=== PATIENT | female | born 1960 | race Caucasian/White ===

== ENCOUNTER 2017-08-19 08:08 | Day surgery (SDC) | payer SELFPAY ==
[2017-08-13 13:38] VITALS: BMI 29.2
[2017-08-19] MEDS: CYCLOPENTOLATE 2% OPHTH SOLN 2 ML BOTTLE ONE ×6 (08:45→09:10)
[2017-08-19] MEDS: TROPICAMIDE 1% OPHTH SOLN 15 ML BOTTLE ONE ×6 (08:45→09:10)
[2017-08-19] MEDS: PHENYLEPHRINE 2.5% OPHTH SOLN 15 ML BOTTLE ONE ×6 (08:45→09:10)
[2017-08-19] MEDS: CIPROFLOXACIN 0.3% EYE DROPS 5 ML BOTTLE ONE ×6 (08:45→09:10)
[2017-08-19] MEDS ORDERED: TRYPAN BLUE 0.5 ML DISP.SYRIN ONE (10:03)
[2017-08-19] MEDS ORDERED: MIDAZOLAM HCL 2 MG/2 ML SINGLE DOSE VIAL ONE (10:10)
[2017-08-19 11:47] VITALS: TEMP 98.3
[2017-08-19 11:51] VITALS: BP 117/68; PULSE 82
[2017-08-19] MEDS ORDERED: LIDOCAINE 1% P/F 10 MG/ML VIAL ONE (12:10)
[2017-08-19] MEDS ORDERED: TETRACAINE 0.5% OPHTH SOLN 2 ML BOTTLE ONE (12:10)
[2017-08-19] MEDS ORDERED: NEO/POLYMYX B SULF/DEXAMETH OPHTHALMIC 5ML BOTTLE ONE (12:10)
[2017-08-19] MEDS ORDERED: BSS (NA/CA/MG/K) BALANCED SALT SOLUTION OPHTH SOLN 15 ML BOTTLE ONE (12:10)
[2017-08-19] MEDS ORDERED: CARBACHOL 0.01% INTRA-OCULAR 1.5 ML VIAL ONE (12:16)
--- NOTE | 2017-08-19 13:26 | OP ---
DATE OF OPERATION: 08/19/2017 OPERATIVE PROCEDURE: Lens phacoemulsification with posterior chamber intraocular lens placement, left eye. PREOPERATIVE DIAGNOSIS: Visually significant cataract of left eye. POSTOPERATIVE DIAGNOSIS: Visually significant cataract of left eye. SURGEON: Hari Bailey MD ANESTHESIA: MAC. PROCEDURE: The patient was brought to the operating room and placed under monitored anesthesia care by Anesthesia. A drop of Tetracaine was then placed over the left eye. The patient was then prepped and draped in the usual sterile manner. A speculum was then placed over the left eye. The eye was then well irrigated with copious amounts of BSS (balanced salt solution). The operating microscope was then moved into position. A paracentesis was performed using a 15-degree blade. At this point, 0.5 mL of 1% preservative-free lidocaine was injected into the anterior chamber. Amvisc Plus was then injected into the anterior chamber. A clear corneal incision was then formed using a 2.2-mm keratome. A capsulorrhexis was then performed in a continuous circular fashion beginning with a cystotome, completed with an Utratas forceps. Hydrodissection was then performed using BSS on a cannula. The phaco probe was then introduced through the corneal wound and the cataract was removed using the phaco chop technique. Approximately 3 seconds of absolute phaco time was used. The remaining cortex was then removed using irrigation and aspiration with an I/A probe. The capsule was then filled with regular Amvisc and the capsule was noted to be intact. A previously selected foldable posterior chamber intraocular lens was then injected into the capsule through the corneal wound using a lens injector. It was then dialed into position using a Sinskey hook. The Amvisc was then removed using irrigation and aspiration. Miostat was then injected through the paracentesis to constrict the pupil. The paracentesis and corneal wound were then hydrated and noted to be watertight. A drop of Maxitrol was then placed over the eye. The speculum was removed and clear shield was taped over the eye. The patient tolerated the procedure well and there were no surgical complications. The patient was asked to follow up in my office the next day. HARI BAILEY M.D. [id number]
== END 2017-08-19 11:40 | disposition home or self-care (01) ==
LOC: FASU 08:08
PROVIDERS: ATTEND Ophthalmology
PROC: 08RK3JZ Replacement of Left Lens with Synthetic Substitute, Percutaneous Approach (ICD-10-PCS; principal; 2017-08-19 10:23)
DX: H26.8 Other specified cataract (principal)

== ENCOUNTER 2020-09-29 22:18 | Inpatient (IN) | payer SELFPAY ==
[2020-09-29] MEDS ORDERED: SODIUM CHLORIDE 0.9% 1000 ML INFUS.BAG IV ONE (23:19)
[2020-09-29] MEDS ORDERED: KETOROLAC TROMETHAMINE 15 MG/ML VIAL IVPUSH ONE (23:19)
[2020-09-29] MEDS ORDERED: KETOROLAC TROMETHAMINE 15 MG/ML VIAL ONE (23:39)
[2020-09-30 00:47] LABS: BASO % 0.4 % (0-2.0); EOS % 2.8 % (0-4.5); HEMATOCRIT 23.3 % (32.4-45.2); HEMOGLOBIN 7.2 GM/dL (10.7-15.3); LYMPH % 9.5 % (8-40); MCH 22.7 pg (25.7-33.7); MCHC 31.1 g/dl (32.0-36.0); MEAN CELL VOLUME 72.9 fl (80-96); MONO % 6.8 % (3.8-10.2); NEUT % 80.5 % (42.8-82.8); PLATELET COUNT 871 K/MM3 (134-434); RBC 3.19 M/mm3 (3.60-5.2); RDW 18.5 % (11.6-15.6); WHITE BLOOD COUNT 13.8 K/mm3 (4.0-10.0)
[2020-09-30 00:49] LABS: MEAN PLT VOLUME 5.8 fl (7.5-11.1)
[2020-09-30 00:56] LABS: INR 1.04 (0.83-1.09); PROTHROMBIN TIME (PATIENT) 12.8 SEC (9.7-13.0)
[2020-09-30 00:59] LABS: ACTIVATED PTT 25.2 SECONDS (25.2-36.5)
[2020-09-30 01:10] LABS: CHLORIDE 104 mmol/L (98-107); POTASSIUM 4.2 mmol/L (3.5-5.1); SODIUM 135 mmol/L (136-145)
[2020-09-30 01:12] LABS: CALCIUM 8.7 mg/dL (8.5-10.1)
[2020-09-30 01:13] LABS: ALBUMIN 2.1 g/dl (3.4-5.0); ANION GAP 7 MMOL/L (8-16); BLOOD UREA NITROGEN 9.3 mg/dL (7-18); CO2 25 mmol/L (21-32); GLUCOSE,RANDOM 118 mg/dL (74-106); LIPASE 48 U/L (73-393)
[2020-09-30 01:16] LABS: CREATININE 0.4 mg/dL (0.55-1.3); SGPT/ALT 9 U/L (13-61)
[2020-09-30 01:17] LABS: BILIRUBIN,TOTAL 0.3 mg/dL (0.2-1); TOT PROT 5.4 g/dl (6.4-8.2)
[2020-09-30 01:18] LABS: ALK PHOS 73 U/L (45-117)
[2020-09-30 03:18] LABS: SGOT/AST < 3 U/L (15-37)
[2020-09-30] MEDS ORDERED: PIPERACILLIN/TAZOB 4.5 GM 4.5 GM in DEXTROSE 5%-WATER 100 ML IVPB ONE (06:38)
[2020-09-30] MEDS ORDERED: VANCOMYCIN 1 GM in D5W (PRE-DOCKED) 1,000 MG/250 ML IVPB ONE (06:38)
[2020-09-30] MEDS ORDERED: PIPERACILLIN/TAZOB 4.5 GM 4.5 GM/100 ML BAG IVPB ONE (06:41)
[2020-09-30] MEDS ORDERED: VANCOMYCIN 1 GRAM (PRE-DOCKED) 1,000 MG/250 ML BAG IVPB ONE (07:18)
[2020-09-30 10:38] LABS: PH,URINE 5.5 (5.0-8.0); URINE APPEARANCE CLEAR; URINE BILIRUBIN NEGATIVE (NEGATIVE); URINE COLOR YELLOW; URINE GLUCOSE (UA) NEGATIVE (NEGATIVE); URINE KETONE NEGATIVE (NEGATIVE); URINE PROTEIN NEGATIVE (NEGATIVE)
[2020-09-30 10:39] LABS: EPI CELLS 20.8 /uL (0-25.1); URINE BACTERIA 38.2 /uL (0-1359); URINE LEUK ESTERASE NEGATIVE (NEGATIVE); URINE NITRITE NEGATIVE (NEGATIVE); URINE RBC 24.9 /uL (0-23.9); URINE UROBILINOGEN 0.2 mg/dL (0.2-1.0); URINE WBC 43.5 /uL (0-25.8)
[2020-09-30] MEDS ORDERED: ACETAMINOPHEN 325 MG TABLET (FP) PO PRN (16:42)
[2020-09-30] MEDS ORDERED: ONDANSETRON 4 MG/2 ML VIAL IVPUSH PRN (16:44)
[2020-09-30] MEDS ORDERED: PIPERACILLIN/TAZOB 3.375 GM 3.375 GM in DEXTROSE 5%-WATER - 50 ML IVPB SCH (18:00)
[2020-09-30] MEDS ORDERED: DEXTROSE 5%-WATER - 50 ML IVPB ONE (18:00)
[2020-09-30] MEDS ORDERED: PIPERACILLIN/TAZOBACTAM 3.375 GM VIAL IVPB ONE (18:00)
[2020-09-30] MEDS: PIPERACILLIN/TAZOB 3.375 GM 3.375 GM in DEXTROSE 5%-WATER - 50 ML IVPB SCH (18:08)
[2020-10-01] MEDS ORDERED: DEXTROSE 5%-WATER - 50 ML IVPB ONE ×2 (02:05→10:54)
[2020-10-01] MEDS ORDERED: PIPERACILLIN/TAZOBACTAM 3.375 GM VIAL IVPB ONE ×2 (02:05→10:54)
[2020-10-01] MEDS: PIPERACILLIN/TAZOB 3.375 GM 3.375 GM in DEXTROSE 5%-WATER - 50 ML IVPB SCH ×2 (02:41→11:41)
[2020-10-01] MEDS ORDERED: ACETAMINOPHEN 1000 MG/100 ML VIAL (NON FORMULARY) IVPB PRN (10:16)
[2020-10-01 10:31] LABS: CALCIUM 8.7 mg/dL (8.5-10.1)
[2020-10-01 10:32] LABS: CREATININE 0.4 mg/dL (0.55-1.3)
[2020-10-01 15:25] LABS: HEMATOCRIT 20.2 % (32.4-45.2); MCH 23.3 pg (25.7-33.7); MCHC 31.7 g/dl (32.0-36.0); MEAN CELL VOLUME 73.6 fl (80-96); MEAN PLT VOLUME 6.2 fl (7.5-11.1); PLATELET COUNT 861 K/MM3 (134-434); RBC 2.74 M/mm3 (3.60-5.2); RDW 18.4 % (11.6-15.6); WHITE BLOOD COUNT 7.7 K/mm3 (4.0-10.0)
[2020-10-01 15:28] LABS: HEMOGLOBIN 6.4 GM/dL (10.7-15.3)
[2020-10-01] MEDS ORDERED: PT OWN MED DRAWER 7, Y5N ONE (15:35)
[2020-10-01] MEDS: SODIUM CHLORIDE 1,000 ML IV SCH (17:38)
[2020-10-01] MEDS: LACTATED RINGERS SOLUTION 1,000 ML/1,000 ML INFUS.BAG IV SCH (17:38)
[2020-10-02] MEDS: morphine SULFATE 4 MG/ML VIAL IVPUSH PRN ×2 (00:21→21:57)
[2020-10-02 02:59] LABS: HEMATOCRIT 24.9 % (32.4-45.2); HEMOGLOBIN 7.9 GM/dL (10.7-15.3); MCH 24.1 pg (25.7-33.7); MCHC 31.8 g/dl (32.0-36.0); MEAN CELL VOLUME 75.7 fl (80-96); PLATELET COUNT 807 K/MM3 (134-434); RBC 3.29 M/mm3 (3.60-5.2); RDW 18.6 % (11.6-15.6); WHITE BLOOD COUNT 9.3 K/mm3 (4.0-10.0)
[2020-10-02 08:54] LABS: BASO % 0.8 % (0-2.0); EOS % 6.8 % (0-4.5); HEMATOCRIT 26.5 % (32.4-45.2); HEMOGLOBIN 8.8 GM/dL (10.7-15.3); LYMPH % 8.9 % (8-40); MCH 24.7 pg (25.7-33.7); MEAN CELL VOLUME 74.9 fl (80-96); MEAN PLT VOLUME 5.9 fl (7.5-11.1); MONO % 7.9 % (3.8-10.2); NEUT % 75.6 % (42.8-82.8); PLATELET COUNT 905 K/MM3 (134-434); RBC 3.54 M/mm3 (3.60-5.2); RDW 18.2 % (11.6-15.6); WHITE BLOOD COUNT 9.6 K/mm3 (4.0-10.0)
[2020-10-02 08:57] LABS: CHLORIDE 104 mmol/L (98-107); POTASSIUM 4.3 mmol/L (3.5-5.1); SODIUM 136 mmol/L (136-145)
[2020-10-02 09:01] LABS: ALBUMIN 1.9 g/dl (3.4-5.0); ANION GAP 7 MMOL/L (8-16); BLOOD UREA NITROGEN 5.6 mg/dL (7-18); CALCIUM 8.7 mg/dL (8.5-10.1); CO2 25 mmol/L (21-32); GLUCOSE,RANDOM 82 mg/dL (74-106)
[2020-10-02 09:02] LABS: MAGNESIUM 2.1 mg/dL (1.8-2.4)
[2020-10-02 09:04] LABS: CREATININE 0.4 mg/dL (0.55-1.3); PHOSPHOROUS 3.4 mg/dL (2.5-4.9); SGOT/AST < 3 U/L (15-37); SGPT/ALT 8 U/L (13-61)
[2020-10-02 09:05] LABS: ALK PHOS 64 U/L (45-117)
[2020-10-02 09:06] LABS: BILIRUBIN,TOTAL 0.8 mg/dL (0.2-1); TOT PROT 4.8 g/dl (6.4-8.2)
[2020-10-02] MEDS ORDERED: DEXTROSE 5%-WATER - 50 ML IVPB ONE ×2 (13:10→17:12)
[2020-10-02] MEDS ORDERED: PIPERACILLIN/TAZOBACTAM 3.375 GM VIAL IVPB ONE ×2 (13:10→17:12)
[2020-10-02] MEDS: PIPERACILLIN/TAZOB 3.375 GM 3.375 GM in DEXTROSE 5%-WATER - 50 ML IVPB SCH ×2 (13:41→18:16)
[2020-10-02] MEDS: SODIUM CHLORIDE 1,000 ML IV SCH (13:42)
[2020-10-02] MEDS ORDERED: PT OWN MED DRAWER 7, Y5N ONE (16:15)
[2020-10-02] MEDS: LACTATED RINGERS SOLUTION 1,000 ML/1,000 ML INFUS.BAG IV SCH (18:06)
[2020-10-03] MEDS ORDERED: PIPERACILLIN/TAZOBACTAM 3.375 GM VIAL IVPB ONE ×3 (01:53→17:33)
[2020-10-03] MEDS ORDERED: DEXTROSE 5%-WATER - 50 ML IVPB ONE ×3 (01:53→17:33)
[2020-10-03] MEDS: PIPERACILLIN/TAZOB 3.375 GM 3.375 GM in DEXTROSE 5%-WATER - 50 ML IVPB SCH ×3 (01:57→17:49)
[2020-10-03] MEDS: morphine SULFATE 4 MG/ML VIAL IVPUSH PRN ×3 (06:52→23:49)
[2020-10-03] MEDS: SODIUM CHLORIDE 1,000 ML IV SCH (10:03)
[2020-10-03 13:13] VITALS: BMI 20.3
[2020-10-03 14:10] VITALS: TEMP 98.6
[2020-10-03] MEDS: LACTATED RINGERS SOLUTION 1,000 ML/1,000 ML INFUS.BAG IV SCH (17:47)
[2020-10-03 23:59] VITALS: BP 106/66; PULSE 70
== END 2020-10-04 00:12 | disposition short-term general hospital (02) | DRG 240 ==
LOC: JER 22:18 → JERBED 09-30 06:45 → J6S 09-30 15:53
PROVIDERS: ADMIT Internal Medicine; ATTEND Student in an Organized Health Care Education/Training Program
DX: C21.0 Malignant neoplasm of anus, unspecified (principal); C79.89 Secondary malignant neoplasm of other specified sites; K42.9 Umbilical hernia without obstruction or gangrene; D27.9 Benign neoplasm of unspecified ovary; E87.1 Hypo-osmolality and hyponatremia; E86.0 Dehydration; K56.609 Unspecified intestinal obstruction, unspecified as to partial versus complete obstruction; E46 Unspecified protein-calorie malnutrition; Z68.20 Body mass index [BMI] 20.0-20.9, adult; D50.9 Iron deficiency anemia, unspecified; E03.9 Hypothyroidism, unspecified
CPT/HCPCS: 36415; 36430; 36511; 71045-TC-FY; 71260-TC; 74177-TC; 80048; 80053; 81003; 82728; 83540; 83550; 83605; 83690; 83735; 84100; 84439; 84443; 84480; 85025; 85027; 85610; 85730; 86850; 86900; 86901; 86922; 87070; 87086; 87186; 87205; 93005; 93010; 93971-TC; 99285-25; C9803; J0131; P9038; P9058; Q9967; U0003